=== PATIENT | male | born 1980 | race Caucasian/White ===

== ENCOUNTER 2017-10-01 19:51 | Emergency (ER) | payer OTHER ==
[2017-10-01] MEDS ORDERED: HYDROGEN PEROXIDE TP ONE (21:26)
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
[2017-10-01] MEDS ORDERED: NACL 0.9% IR ONE (21:57)
[2017-10-01 22:18] LABS: Hematocrit 45.7 % (35.5-45.6); Hemoglobin 15.1 gm/dl (11.8-15.2); Mean Corpuscular HGB Conc 33 % (32-34); Mean Corpuscular Hemoglobin 29 pg (28-32); Mean Corpuscular Volume 89 fl (84-94); Platelet Count 224 K/mm3 (140-440); Red Blood Count 5.13 M/mm3 (3.65-5.03); Red Cell Distribution Width 13.2 % (13.2-15.2)
[2017-10-01 22:22] LABS: Bilirubin,Urine NEG (Negative); Blood,Urine SM (Negative); Color,Urine Yellow (Yellow); Mucus,Urine FEW /HPF; Nitrite,Urine NEG (Negative); Urobilinogen,Urine < 2.0 mg/dL (<2.0)
[2017-10-01 22:37] LABS: Alanine Aminotransferase 53 units/L (7-56); Albumin 4.3 g/dL (3.9-5); BUN/Creatinine Ratio 22; Blood Urea Nitrogen 20 mg/dL (9-20); Calcium 8.9 mg/dL (8.4-10.2); Hemolysis Index 6
[2017-10-01 22:43] LABS: Amphetamine Screen,Urine PRESUMPTIVE NEGATIVE; Benzodiazepines Screen,Urine PRESUMPTIVE NEGATIVE; Cannabinoid Screen,Urine PRESUMPTIVE NEGATIVE; Cocaine Screen,Urine PRESUMPTIVE NEGATIVE; Methadone Screen,Urine PRESUMPTIVE NEGATIVE; Opiate Screen,Urine PRESUMPTIVE NEGATIVE
[2017-10-01 22:45] LABS: Basophils % (Manual) 0 % (0.0-1.8); Eosinophils % (Manual) 0 % (0.0-4.3); Total Cells Counted 100
[2017-10-01 22:46] LABS: RBC Morphology Normal
--- NOTE | 2017-10-01 23:15 | Cat Scan Report ---
FINAL REPORT PROCEDURE: CT HEAD/BRAIN WO CON TECHNIQUE: Computerized tomography of the head was performed without contrast material. HISTORY: pain COMPARISON: No prior studies are available for comparison. FINDINGS: Skull and scalp: Normal. Paranasal sinuses: Moderate opacification of the ethmoid sinuses. Almost complete opacification of the right maxillary sinus. Ventricles and subarachnoid spaces: Normal. Cerebrum: No evidence of hemorrhage, acute infarction or mass . Cerebellum and brainstem: No evidence of hemorrhage, acute infarction or mass. Vasculature: Normal. Comments: None. IMPRESSION: There is no evidence of an acute intracranial process. Mild sinusitis as described
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
[2017-10-02] MEDS ORDERED: POLYSPORIN TP ONE (00:14)
[2017-10-02] MEDS ORDERED: TRIPLE ANTIBIOTIC TP ONE (00:18)
--- NOTE | 2017-10-02 00:19 | XRay Report ---
FINAL REPORT PROCEDURE: XR FOOT 3+V LT TECHNIQUE: LEFT foot radiographs, AP, lateral, and oblique views. CPT 22428 HISTORY: lt foot pain COMPARISON: No prior studies are available for comparison. FINDINGS: Fracture (s) and/or Dislocation(s): None . Alignment: Normal . Joint space(s): Mild hallux valgus deformity. Mild narrowing of the joint spaces.. Soft tissues: Normal . Bone mineralization: Normal . Foreign bodies: None . Calcaneal spurring: Small inferior spur. IMPRESSION: No evidence of an acute fracture. Moderate arthritis.
--- NOTE | 2017-10-02 00:21 | XRay Report ---
FINAL REPORT PROCEDURE: XR FEMUR 2+V LT TECHNIQUE: LEFT femur radiographs, AP and lateral views. HISTORY: lt femur pain COMPARISON: No prior studies are available for comparison. FINDINGS: Fracture (s) and/or Dislocation(s): None . Joint space(s): Normal . Soft tissues: Normal . Bone mineralization: Normal . Foreign bodies: None . IMPRESSION: Normal Examination
--- NOTE | 2017-10-02 00:23 | XRay Report ---
FINAL REPORT PROCEDURE: XR ANKLE 3+V LT TECHNIQUE: RIGHT ankle radiographs, AP, lateral, and oblique views. CPT 57071 HISTORY: rt ankle pain COMPARISON: No prior studies are available for comparison. FINDINGS: Fracture (s) and/or Dislocation(s): None. Alignment: Normal. Joint space(s): Normal. Soft tissues: Mild soft tissue swelling diffusely. Bone mineralization: Normal. Foreign bodies: None. Calcaneal spurring: None. IMPRESSION: No acute fracture or dislocation. Mild diffuse soft tissue swelling.
--- NOTE | 2017-10-02 00:24 | XRay Report ---
FINAL REPORT PROCEDURE: XR TIBIA FIBULA 2V LT TECHNIQUE: LEFT tibia and fibula radiographs, AP and lateral views. CPT 74346 HISTORY: leg pain COMPARISON: No prior studies are available for comparison. FINDINGS: Fracture (s) and/or Dislocation(s): None . Joint space(s): Normal . Soft tissues: Normal . Bone mineralization: Normal . Foreign bodies: None . IMPRESSION: Normal Examination.
[2017-10-02] MEDS ORDERED: MOTRIN PO ONE (02:17)
[2017-10-02 05:36] VITALS: BP 106/68
== END 2017-10-02 07:00 | disposition home or self-care (01) ==
LOC: ED 19:51
DX: S01.81XA Laceration without foreign body of other part of head, initial encounter (principal); S20.311A Abrasion of right front wall of thorax, initial encounter; M19.072 Primary osteoarthritis, left ankle and foot; M54.5 Low back pain; M25.551 Pain in right hip; M25.562 Pain in left knee; M25.512 Pain in left shoulder; R10.2 Pelvic and perineal pain; Z79.899 Other long term (current) drug therapy; V09.20XA Pedestrian injured in traffic accident involving unspecified motor vehicles, initial encounter; Y93.89 Activity, other specified; Y99.8 Other external cause status; Y92.410 Unspecified street and highway as the place of occurrence of the external cause
CPT/HCPCS: 36415; 70450; 70486; 71275; 72125; 73552; 73590; 73610; 73630; 74177; 80053; 80307; 81001; 85007; 85025; 99285; G0480; Q9967; 80320; A6250